=== PATIENT | female | born 2000 | race Caucasian/White ===

== ENCOUNTER 2025-04-01 22:52 | Emergency (ER) | payer MEDICAID ==
[~2025-04-01] VITALS: Ht 160 cm; Wt 58.0 kg
[2025-04-01 22:56] VITALS: TEMP 36.8; O2SAT 98
[2025-04-01] MEDS: ACETAMINOPHEN 500MG TABLET PO ONE (23:50)
[2025-04-02 00:20] VITALS: BP 101/48; PULSE 73; RESP 16; O2SAT 99
[2025-04-02 00:20] LABS: BASOPHILS % 0.4 % (0.0-2.0); EOSINOPHILS % 5.7 % (0.0-5.0); HEMATOCRIT. 32.5 % (36.0-48.0); HEMOGLOBIN. 11.0 g/dL (12.0-16.0); LYMPHOCYTES % 22.6 % (20.0-50.0); MEAN PLATELET VOLUME 9.8 fl (7.4-10.4); MONOCYTES % 6.0 % (2.0-8.0); NEUTROPHILS % 65.3 % (40.0-76.0); PLATELET 254 x1000/uL (130-400); RED BLOOD CELL COUNT 3.68 mill/uL (4.2-5.4); RED CELL DISTRIBUTION WIDTH 13.5 % (11.6-14.6)
[2025-04-02 00:27] LABS: CREATININE 0.5 mg/dL (0.6-1.0)
[2025-04-02 00:28] LABS: UREA NITROGEN BLOOD < 5 mg/dL (9-23)
[2025-04-02 00:29] LABS: ASPARTATE AMINOTRANSFERASE 16 IU/L (<34)
[2025-04-02 00:30] LABS: BILIRUBIN DIRECT < 0.1 mg/dL (<=3.0); BILIRUBIN TOTAL 0.4 mg/dL (0.1-1.0); PROTEIN TOTAL 7.3 g/dL (6.0-8.3)
[2025-04-02 00:35] LABS: HCG SCREEN POSITIVE
[2025-04-02 00:36] LABS: INR 1.0
[2025-04-03 04:09] LABS: HSV TYPE 2 SPECIFIC AB IGG Non Reactive (Non Reactive)
== END 2025-04-02 00:48 | disposition short-term general hospital (02) ==
LOC: ER 22:52
DX: O26.893 Other specified pregnancy related conditions, third trimester (principal); Z3A.37 37 weeks gestation of pregnancy; Z79.899 Other long term (current) drug therapy
CPT/HCPCS: 36415; 76815; 80048; 80076; 80320; 83735; 84702; 84703; 85025; 86592; 86695; 86696; 86850; 86900; 87340; 93005; 99285; G0480